=== PATIENT | male | born 1945 ===

== ENCOUNTER 2016-07-20 14:16 | Inpatient (IN) | payer MEDICARE, OTHER ==
[2016-07-20 14:32] VITALS: BMI 25.3
[2016-07-20] MEDS ORDERED: Sodium Chloride 0.9% 1,000 ML IV STA ×2 (14:48→14:49)
--- NOTE | 2016-07-20 15:01 | ED PDOC ---
Arrival/HPI - General Historian: Patient - General Chief Complaint: Trauma Time Seen by Provider: 07/20/16 14:18 - History of Present Illness Narrative History of Present Illness (Text): 07/20/16 14:51 71 yo M w h/o CVA, NIDDM2, HTN presented to ER s/p fall with head trauma. Patient states he started having dysuria, urgency and frequency yesterday and started becoming dizzy. He states he was walking today and "lost balance," falling on his face. Patient states he was carrying groceries and did not attempt to brace his fall, falling on his left forehead and nose. He states a passerby helped him up and incident recurred ~1 hour later. Patient denies actual loss of consciousness and states this has not occurred previously. Patient denies CP, SOB, RASMUSSEN, headache, confusion, palpitations immediately prior to syncopal episode. Patient denies any current headache, dizziness, confusion, vision changes, CP, SOB, abd pain, n/v/d/c, chills. (Zuleyka Howard) Past Medical History - Provider Review Nursing Documentation Reviewed: Yes - Travel History Have you recently traveled outside [place] w/in the past 3 mons?: No - Cardiac Hx Cardiac Disorders: Yes Hx Hypertension: Yes - Pulmonary Hx Respiratory Disorders: No - Neurological Hx Neurological Disorder: Yes HX Cerebrovascular Accident: Yes - HEENT Hx HEENT Disorder: No - Renal Hx Renal Disorder: No - Endocrine/Metabolic Hx Endocrine Disorders: Yes Hx Diabetes Mellitus Type 2: Yes - Hematological/Oncological Hx Blood Disorders: No - Integumentary Hx Dermatological Disorder: No - Musculoskeletal/Rheumatological Hx Musculoskeletal Disorders: No - Gastrointestinal Hx Gastrointestinal Disorders: No - Genitourinary/Gynecological Hx Genitourinary Disorders: No - Psychiatric Hx Psychophysiologic Disorder: No Hx Anxiety: No Hx Substance Use: No Family/Social History - Physician Review Nursing Documentation Reviewed: Yes Family/Social History: CAD/[place] Smoking Status: Never Smoked Hx Alcohol Use: No Hx Substance Use: No Allergies/Home Meds Allergies/Adverse Reactions: Allergies No Known Allergies Allergy (Verified 07/20/16 14:31) Home Medications: Home Meds Medication Instructions Recorded Confirmed Lisinopril [Zestril] 10 mg PO DAILY 07/20/16 07/20/16 Sitagliptin Phos/Metformin HCl 0 mg PO DAILY 07/20/16 07/20/16 [Janumet 50-1,000 mg Tablet] Review of Systems - Physician Review All systems were reviewed & negative as marked: Yes - Review of Systems Constitutional: absent: Fatigue, Fevers, Night Sweats Eyes: absent: Vision Changes, Photophobia ENT: absent: Rhinorrhea, Epistaxis, Sinus Congestion Respiratory: absent: SOB, Cough, Sputum Cardiovascular: absent: Chest Pain, Palpitations, Edema, Calf Pain, RASMUSSEN Gastrointestinal: absent: Abdominal Pain, Diarrhea, Nausea, Vomiting Genitourinary Male: Dysuria, Frequency, Other (urgency). absent: Hematuria Musculoskeletal: absent: Arthralgias, Neck Pain Skin: absent: Rash, Skin Lesions Neurological: absent: Headache, Dizziness, Focal Weakness Endocrine: absent: Diaphoresis, Polydipsia Psychiatric: absent: Anxiety, Depression, Suicidal Ideation Physical Exam Temperature: Afebrile Blood Pressure: Normal Pulse: Regular Respiratory Rate: Normal Appearance: Positive for: Well-Appearing, Non-Toxic, Comfortable Pain Distress: None Mental Status: Positive for: Alert and Oriented X 3 - Systems Exam Head: Present: Abrasion (bridge of nose and L>R forehead). No: Atraumatic Pupils: Present: PERRL. No: Sluggish Extroacular Muscles: Present: EOMI Conjunctiva: Present: Normal. No: Injected, Icteric Mouth: Present: Dry (slightly) Neck: Present: Normal Range of Motion. No: Meningeal Signs, JVD Respiratory/Chest: Present: Clear to Auscultation. No: Respiratory Distress, Accessory Muscle Use Cardiovascular: Present: Murmurs (3/6 systolic RSB), Normal S1, S2, Tachycardic. No: Irregular Rhythm Abdomen: Present: Normal Bowel Sounds. No: Tenderness, Distention, Peritoneal Signs, Rebound, Guarding Back: No: CVA Tenderness Upper Extremity: Present: Normal Inspection. No: Cyanosis, Edema Lower Extremity: Present: Normal Inspection. No: Edema, CALF TENDERNESS Neurological: Present: GCS=15, CN II-XII Intact, Speech Normal Skin: Present: Warm, Dry, Normal Color. No: Rashes Psychiatric: Present: Alert, Oriented x 3, Normal Insight, Normal Concentration Vital Signs Temp Pulse Resp BP Pulse Ox 07/20/16 16:32 83 16 119/58 L 95 07/20/16 16:11 84 16 120/60 98 07/20/16 16:10 80 18 120/57 L 95 07/20/16 14:32 101.6 F H 110 H 15 150/55 L 95 Medical Decision Making Re-evaluation Time: 16:10 Reassessment Condition: Re-examined, Unchanged - Lab Interpretations I have reviewed the lab results: Yes - RAD Interpretation Heavy Equipment Rental Manager: Radiologist - EKG Interpretation Interpreted by ED Physician: Yes Type: 12 lead EKG Comparison: No previous EKG avail. (09/11/2014 Nuclear stress test report indicates presence of RBBB at that time) ED Course and Treatment: 07/20/16 15:08 71 yo M w h/o CVA, HTN, NIDDM2 presented with pre-syncope with head trauma, and dysuria. Patient febrile in ER 101.6, tachycardic in 100s. CT head without contrast, labs, EKG, UA with culture, blood cultures. 1L NS bolus x 2. 07/20/16 16:10 Patient re-evaluated, states he feels the same, no complaints. 07/20/16 16:[address] Cruz, case discussed at length. Dr. Cruz accepts admission to telemetry, requests 1/2 NS @ 80cc/hr, low insulin SSI, diet, neuro [facility] Dr. Will. [facility] 07/20/16 16:49 Patient seen and examined with resident Came up with treatment and disposition plan with resident (Charbel Cain) - Lab Interpretations Lab Results: 07/20/16 15:00 07/20/16 15:00 Lab Results 07/20/16 15:30: Urine Color Yellow, Urine Appearance Sl cloudy, Urine pH 6.0, Ur Specific [place] >= 1.030, Urine Protein 30 H, Urine Glucose (UA) Negative, Urine Ketones Trace H, Urine Blood Large H, Urine Nitrate Negative, Urine Bilirubin Negative, Urine Urobilinogen 1.0 H, Ur Leukocyte Esterase Trace H, Urine RBC 0 - 2, Urine WBC 5 - 10, Ur Epithelial Cells 0 - 2, Urine Bacteria Many 07/20/16 15:00: WBC 16.7 H D, RBC 4.28, Hgb 13.1 L, Hct 37.7 L, MCV 88.1, MCH 30.6, MCHC 34.7, RDW 13.5, Plt Count 199, MPV 10.3, Gran % 87.9 H, Lymph % (Auto ) 4.5 L, [place] % (Auto) 7.4 H, Eos % (Auto) 0.0 L, Baso % (Auto) 0.2, Gran # 14.69 H, Lymph # 0.8 L, [place] # 1.2 H, Eos # 0.0, Baso # 0.03, PT 11.9 H, INR 1.10 H, APTT 29.5, Sodium 134, Potassium 4.3, Chloride 97 L, Carbon Dioxide 25, Anion Gap 16, BUN 23 H, Creatinine 1.0, Est GFR ( Amer) > 60, Est GFR ( Non-Af Amer) > 60, Random Glucose 149 H, Calcium 9.3, Magnesium 1.8, Total Bilirubin 1.4 H, AST 28, ALT 26, Alkaline Phosphatase 59, Troponin I < 0.01, NT- Pro-B Natriuret Pep 220, Total Protein 7.7, Albumin 4.1, Globulin 3.6, Albumin/ Globulin Ratio 1.1 - RAD Interpretation Narrative RAD Interpretations (Text): 07/20/16 16:11 CXR - no active disease. CT head - no intracranial mass, hemorrhage or evidence of acute infarct. Remote ischemic change right frontal rosas radiate/centrum semiovale. (Zuleyka Howard) Radiology Orders: 07/20/16 14:39 HEAD W/O CONTRAST [CT] Stat 07/20/16 14:40 CHEST TWO VIEWS (PA/LAT) [RAD] Stat - EKG Interpretation EKG Interpretation (Text): 07/20/16 15:05 NSR 97bpm, RBBB, normal intervals (Zuleyka Howard) - Medication Orders Current Medication Orders: Sodium Chloride (Sodium Chloride 0.45%) 1,000 mls @ 80 mls/hr IV .[id number] ESTELLA Insulin Human Lispro (Humalog Low) 0 units SC ACHS ESTELLA PRN Reason: Protocol Discontinued Medications Acetaminophen (Tylenol 325mg Tab) 650 mg PO STAT STA Stop: 07/20/16 15:38 Last Admin: 07/20/16 16:07 Dose: 650 MG Sodium Chloride (Sodium Chloride 0.9%) 1,000 mls @ 999 mls/hr IV .Q1H1M STA Stop: 07/20/16 15:48 Last Admin: 07/20/16 15:00 Dose: 999 MLS/HR eMAR Start Stop Document 07/20/16 15:00 SF (Rec: 07/20/16 16:09 [id number]) Intravenous Solution Start Date 07/20/16 Start Time 15:00 End Date 07/20/16 End time 16:00 Total Infusion Time 60 Sodium Chloride (Sodium Chloride 0.9%) 1,000 mls @ 999 mls/hr IV .Q1H1M STA Stop: 07/20/16 15:49 Last Admin: 07/20/16 15:00 Dose: 999 MLS/HR eMAR Start Stop Document 07/20/16 15:00 SF (Rec: 07/20/16 16:08 SF [facility] [id number]) Intravenous Solution Start Date 07/20/16 Start Time 15:00 End Date 07/20/16 End time 16:00 Total Infusion Time 60 Ceftriaxone Sodium (Rocephin 1 Gram Ivpb) 100 mls @ 200 mls/hr IVPB STAT STA PRN Reason: Protocol Stop: 07/20/16 16:06 Last Admin: 07/20/16 16:07 Dose: 200 MLS/HR eMAR Start Stop Document 07/20/16 16:07 SF (Rec: 07/20/16 16:07 SF [facility] [id number]) Intravenous Solution Start Date 07/20/16 Start Time 16:07 End Date 07/20/16 End time 16:37 Total Infusion Time 30 Disposition/Present on Arrival - Present on Arrival Any Indicators Present on Arrival: No History of DVT/PE: No History of Uncontrolled Diabetes: No Urinary Catheter: No History of Decub. Ulcer: No History Surgical Site Infection Following: None - Disposition Have Diagnosis and Disposition been Completed?: Yes Disposition Time: 16:23 Patient Plan: Admission - Disposition Diagnosis: Sepsis, UTI (urinary tract infection), Syncope Disposition: HOSPITALIZED Patient Problems: Current Active Problems Problem Status Diagnosed Sepsis Acute Syncope Acute UTI (urinary tract infection) Acute Condition: FAIR Discharge Instructions (ExitCare): Sepsis (ED), Syncope (ED), Urinary Tract Infection in Men (DC) Referrals: Zachariah Holly MD [Primary Care Provider] - Follow up with primary
--- NOTE | 2016-07-20 15:29 | CT ---
PROCEDURE: CT HEAD WITHOUT CONTRAST. HISTORY: syncope, head trauma COMPARISON: None available. TECHNIQUE: Axial computed tomography images were obtained through the head/brain without intravenous contrast. Radiation dose: Total exam DLP = 677.45 mGy-cm. This CT exam was performed using one or more of the following dose reduction techniques: Automated exposure control, adjustment of the mA and/or kV according to patient size, and/or use of iterative reconstruction technique. FINDINGS: HEMORRHAGE: No intracranial hemorrhage. BRAIN: No mass effect or edema. There is mild to moderate diffuse cerebral atrophy. There is remote focal white matter ischemic change in the right frontal rosas radiata extending to the centrum semiovale. . There is mild periventricular white matter lucency, consistent with age-related microvascular ischemic change. There is no evidence of acute infarct. VENTRICLES: Unremarkable. No hydrocephalus. CALVARIUM: Unremarkable. PARANASAL SINUSES: Unremarkable as visualized. No significant inflammatory changes. MASTOID AIR CELLS: Unremarkable as visualized. No inflammatory changes. OTHER FINDINGS: None. IMPRESSION: No intracranial mass, hemorrhage or evidence of acute infarct. Remote ischemic change right frontal rosas radiata/ centrum semiovale.
--- NOTE | 2016-07-20 15:30 | RAD ---
HISTORY: syncope COMPARISON: No prior. TECHNIQUE: Chest PA and lateral FINDINGS: LUNGS: No active pulmonary disease. PLEURA: No significant pleural effusion identified. No pneumothorax apparent. CARDIOVASCULAR: Normal. OSSEOUS STRUCTURES: No significant abnormalities. VISUALIZED UPPER ABDOMEN: Normal. OTHER FINDINGS: None. IMPRESSION: No active disease.
[2016-07-20] MEDS ORDERED: cefTRIAXone 1 gm 100 ML IVPB STA (15:37)
[2016-07-20 15:41] LABS: ADD MANUAL DIFF? NO
[2016-07-20 15:53] LABS: BASO # 0.03 K/mm3 (0.0-2.0); BASO % 0.2 % (0.0-3.0); GRAN # 14.69 (1.4-6.5); GRAN % 87.9 % (50.0-68.0); HEMATOCRIT 37.7 % (42.0-52.0); LYMPH # 0.8 (1.2-3.4); LYMPH % 4.5 % (22.0-35.0); MEAN CELL VOLUME 88.1 fL (80.0-105.0); MEAN CORPUSCULAR HEMOGLOBIN 30.6 pg (25.0-35.0); MEAN CORPUSCULAR HGB CONC 34.7 g/dl (31.0-37.0); MEAN PLATELET VOLUME 10.3 fl (7.0-11.0); MONO # 1.2 (0.1-0.6); MONO % 7.4 % (1.0-6.0); PLATELET COUNT 199 10^3/uL (120.0-450.0); RED CELL DISTRIBUTION WIDTH 13.5 % (11.5-14.5); WHITE BLOOD COUNT 16.7 10^3/ul (4.5-11.0)
[2016-07-20 15:55] LABS: ALB/GLOB RATIO 1.1 (1.1-1.8); ALKALINE PHOSPHATASE 59 U/L (38-133); ALT/SGPT 26 U/L (7-56); AST/SGOT 28 U/L (15-59); BILIRUBIN,TOTAL 1.4 mg/dL (0.2-1.3); BLOOD UREA NITROGEN 23 mg/dL (7-21); CALCIUM 9.3 mg/dL (8.4-10.5); CARBON DIOXIDE 25 mmol/L (21-33); CHLORIDE 97 mmol/L (98-107); GFR AFRICAN-AMERICAN > 60; GLUCOSE,RANDOM 149 mg/dL (70-110); MAGNESIUM 1.8 mg/dL (1.7-2.2); POTASSIUM 4.3 mmol/L (3.6-5.0); SODIUM 134 mmol/L (132-148); TOTAL PROTEIN 7.7 g/dL (5.8-8.3)
[2016-07-20 15:58] LABS: INR 1.1 (0.93-1.08); PARTIAL THROMBOPLASTIN TIME 29.5 Seconds (23.7-30.8)
[2016-07-20 15:58] LABS: URINE APPEARANCE SL CLOUDY (CLEAR); URINE BILIRUBIN NEGATIVE (NEGATIVE); URINE BLOOD LARGE (NEGATIVE); URINE COLOR YELLOW (YELLOW); URINE GLUCOSE (UA) NEGATIVE (NEGATIVE); URINE KETONE TRACE mg/dL (NEGATIVE); URINE LEUKOCYTE ESTERASE TRACE Leu/uL (NEGATIVE); URINE PROTEIN 30 mg/dL (<30 mg/dL)
[2016-07-20 16:09] LABS: TROPONIN I < 0.01 ng/mL
[2016-07-20 16:18] LABS: URINE BACTERIA MANY (NEG); URINE EPITHELIAL CELLS 0 - 2 /hpf (0-5); URINE RBC 0 - 2 /hpf (0-2)
[2016-07-20] MEDS ORDERED: Sodium Chloride 0.45% 1,000 ML IV SCH (16:30)
[2016-07-20] MEDS: Insulin Lispro (humaLOG) LOW Coverage SC SCH ×2 (16:35→22:03)
[2016-07-21] MEDS: Insulin Lispro (humaLOG) LOW Coverage SC SCH ×4 (07:40→21:33)
--- NOTE | 2016-07-21 10:19 | HP ---
The patient was examined on 07/20. History and physical completed on patient on 07/20. HISTORY OF PRESENT ILLNESS: This 71-year-old male was examined in bed 16 in the [facility] ER. He presented to the ER on 07/20, after having a fall while walking on the street with groceries and sustaining an abrasion to his forehead and left cheek. The patient stated he felt weak and dizzy and in the Emergency Room was noted to have a fever in excess of 101 with tachycardia and clinical dehydration. The patient was noted to have signs of a urinary tract infection and is being admitted for further evaluation of all the above and concerns of urosepsis. On further questioning, when he presented to the ER, he was noted to be tachycardic, febrile, was cultured, given 2 liters of IV fluid and at present is afebrile after the administration of antibiotic and Tylenol and has a heart rate in the 80s, in a normal sinus rhythm on the monitor. The patient's past medical history is significant for chronic hypertension, benign prostate hypertrophy, hyperlipidemia, type 2 diabetes mellitus, and a history of an old right cerebrovascular accident approximately 10 years ago at which time he had left-sided weakness, which is now resolved. REVIEW OF SYSTEMS: HEAD: The patient denies any knowledge of seizures, has a history of old stroke and at present has no headache. EYES: No change in visual acuity. EARS: No hearing loss. THROAT: No swallowing difficulty. NECK: No stiffness. CARDIOVASCULAR: Has a history of chronic hypertension. PULMONARY: No cough, no hemoptysis. GASTROINTESTINAL: No hematemesis, no melena. GENITOURINARY: Has a history of benign prostate hypertrophy for which he states he follows with Dr. Hill Corona, urology, who prescribes Flomax 0.4 mg p.o. daily for the past year. VASCULAR: No claudication. PSYCHOLOGICAL: No depression. ENDOCRINE: He has a history of type 2 diabetes mellitus. NEUROLOGICAL: Old right-sided CVA with no residual weakness. FAMILY HISTORY: Mother is . Father is alive at 98. SOCIAL HISTORY: The patient is a nondrinker, nonsmoker, non-IV drug misuser and he is a retired clerical worker. PHYSICAL EXAMINATION: GENERAL: The patient was in a normal sinus rhythm. VITAL SIGNS: Temperature 98.6, respirations 20, pulse 80, and blood pressure 113/56 with a pulse ox of 95% on room air. HEAD: He has an abrasion over his left forehead and left cheek. Eyes: No icterus. Ears clear. Throat not injected. NECK: Supple. HEART: Regular S1, S2. No pathological rubs, murmurs, or gallops. LUNGS: Clear. ABDOMEN: Soft, nontender, no palpable organomegaly. EXTREMITIES: No clubbing, no cyanosis, no edema. SKIN: Without rash. VASCULAR: Legs warm to touch. PSYCHOLOGICAL: Alert and oriented x 3. NEUROLOGIC: Grossly intact. Motor strength 5/5 in upper and lower extremities. No motor defect. LABORATORY DATA: White count 16,700, hemoglobin 13.1, hematocrit 37.7, platelets 199,000. PT/INR 1.10, PTT 29.5. Sodium 134, K 4.3, chloride 97, bicarbonate 25, BUN 23, creatinine 1.0, random blood sugar was 149, magnesium normal at 1.8, AST 28, ALT 26, alkaline phosphatase 59, bilirubin 1.4. Troponin was less than 0.01. Urinalysis showed 0-2 RBCs and many bacteria with a specific gravity greater than 1.030. system development engineer showed normal sinus rhythm. Chest x-ray showed no active disease. Head CT showed no intracranial mass, hemorrhage, or evidence of acute infarct and remote ischemic changes in the right frontal rosas. IMPRESSION: A 71-year-old male with urinary tract infection, leukocytosis, probable urosepsis, who presented with clinical fever, dehydration, which probably prompted his trip and fall and of which there was no loss of consciousness with comorbidities of type 2 diabetes mellitus, history of prostate hypertrophy and chronic hypertension. PLAN: My plans are to fully culture this patient's blood and urine. He has received 2 liters of IV fluid and will be maintained on 0.45 saline at 80 mL per hour. He will be ordered a heart healthy diabetic diet and be placed on regular low dose insulin protocol a.c. meals and at bedtime. He will receive Rocephin 1 gram IV q. 24 pending his urinary culture results. He will have his Zestril 10 mg p.o. daily ordered. When his blood pressure stabilizes, will be put back on his Flomax 0.4 mg p.o. daily. He has a consultation pending with Dr. Will from neurology. I have had a lengthy bedside discussion with this patient regarding the need for him upon discharge to follow up with his PMD, Dr. Holly as well as Dr. Hill Corona from urology regarding his presenting signs of urinary tract infection and the patient is aware that it is his responsibility to do so and states he will. Hopefully he will be compliant with these recommendations upon discharge. Greater than 60 minutes was spent in the care, coordination of care, discussion of care, review of care with the patient and co-consultants today. Yari Cruz MD cc: [phone] TT: 07/21/2016 10:18:17 luis SPENCE
--- NOTE | 2016-07-21 11:11 | CARD ---
APPROVED REPORT EKG Measurement Heart [id number] <Conclusion> Normal sinus rhythm Right bundle branch block Minimal voltage criteria for LVH, may be normal variant
[2016-07-21] MEDS: cefTRIAXone 1 gm 100 ML IVPB SCH (11:26)
[2016-07-21] MEDS: Sodium Chloride 0.45% 1,000 ML IV SCH (11:30)
--- NOTE | 2016-07-21 13:14 | CON ---
DATE: 07/21/2016 CHIEF COMPLAINT: Status post fall. HISTORY OF PRESENTING ILLNESS: This is a 71-year-old man with past medical history of chronic hypert ension, type 2 diabetes mellitus, history of old right basal ganglia infarct without any residual wea kntierney, which was 10 years ago, who presented because he was walking on the street with groceries and felt off balance and lightheaded and generalized weakness and fell. He denies any loss of consciousn ess or any palpitations. He had a fever of 101 and tachycardic and was clinically dehydrated. He hernandez d elevated BUN. He was given 2 liters of IV fluids in the ER. Currently, he is stable. He is no lo nger febrile. He has an elevated white count, has positive urinary tract infection. His blood press ures are much more stable. He had systolically and diastolically mild low blood pressure when he cam e in. Currently, he has no focal weakness, just some subtle weakness on the left side in terms of re duced finger tap on the left compared to the right from prior CVA. PAST MEDICAL HISTORY: History of right MCA infarct with minimal residual left-sided weakness which h as resolved, type 2 diabetes mellitus, chronic hypertension. REVIEW OF SYSTEMS: A 14-point is negative except for in the HPI. FAMILY HISTORY: Mother . Father is alive at . SOCIAL HISTORY: No illicit drug use, smoking or ETOH abuse. ALLERGIES: No known drug allergies. MEDICATIONS: Reviewed via nurse's reconciliation sheet. PHYSICAL EXAMINATION: VITAL SIGNS: Temperature 98.3, pulse rate 63, blood pressure 115/64, respiratory rate of 15, oxygen saturation 98% via room air. GENERAL: The patient is sitting up in the chair, in no acute distress. HEENT: Atraumatic, normocephalic. PERRLA. Extraocular muscles intact. NECK: Supple, no JVD, no adenopathy noted. LUNGS: Clear to auscultation. No adventitious sounds. HEART: S1, S2, normal rate and rhythm. No murmurs, rubs, or gallops. ABDOMEN: Soft, nontender, nondistended. Bowel sounds are present. EXTREMITIES: No clubbing, no cyanosis. Peripheral pulses 2+ felt bilaterally. NEUROLOGIC: The patient is alert, oriented to person, place, month and year. Speech is fluent, with out any errors. Cranial nerves II-XII are intact. MOTOR: Moves all extremities equally. Mild left finger tap slowing compared to the right from prior CVA. Otherwise, DTRs are 2+ throughout. COORDINATION: [id number] intact. SENSORY: Light touch, pinprick, proprioception, vibration intact. GAIT: Deferred for now. LABORATORIES: Sodium 134, potassium 4.2, chloride 97, carbon dioxide of 25, BUN of 23, creatinine of 1, random glucose of 149. ASSESSMENT AND PLAN: This is a 71-year-old man with history of a right basal ganglia infarct with ve ry limited left-sided weakness with history of type 2 diabetes mellitus and hypertension, who had a f all and near syncope and felt generalized weak and dizzy, and came to the hospital for further evalua tion, found to have mild tachycardia and was clinically dehydrated and had low systolic blood pressur es. In addition, had small urinary tract infection. At this time, his symptoms could be secondary o r transient cerebral hypoperfusion from dehydration. At this time, recommend: 1. Monitor his electrolytes and correct accordingly. 2. He is on ceftriaxone and was given 1 gram, was given 1 dose for his underlying small urinary trac t infection. 3. Keep his systolic blood pressure between 120-130 mmHg. 4. Advised adequate hydration throughout the day. 5. Currently, from a neuro standpoint, he is clinically stable and cleared for discharge when feels well. Thank you for this consult. Fidel Will MD cc: [phone] TT: 07/21/2016 13:14:13 Confirmation # [id number] Dictation # [id number]
--- NOTE | 2016-07-21 20:22 | PN ---
DATE: 07/21/2016 This 71-year-old male was examined at his bedside in the presence of his and his daughter. His case was reviewed in detail with his nurse Lula Crabtree and the patient today remains on IV fluids, IV antibiotics in the setting of urosepsis status post dehydration with tachycardia, fever and leukocytosis. At present, the patient is much more alert. He now reveals that he has additional medication that needs to be ordered including Aggrenox 25-200 one p.o. daily as well as Lipitor 20 mg p.o. at bedtime. The patient is tolerating IV fluids, IV antibiotics, has had a defervescence of his fever and his cardiac/vascular sonographer is showing normal sinus rhythm. He denied any fever, chills , or dysuria at present. He is tolerating IV antibiotic. PHYSICAL EXAMINATION VITAL SIGNS: Temperature 98.3, respirations 15, pulse 63 and blood pressure 115 /64, pulse ox was 95% on room air. HEAD: Normocephalic, atraumatic. EYES: No icterus. EARS: Clear. THROAT: Noninjected. NECK: Supple. HEART: S1, S2, without pathological rubs, murmurs or gallops. LUNGS: Clear to auscultation. ABDOMEN: Soft, nontender, no palpable organomegaly, no rebound, no guarding, no tenderness. EXTREMITIES: No clubbing, no cyanosis, no edema. SKIN: Without rash. NEUROLOGIC: Intact. PSYCHOLOGICAL: Alert. VASCULAR: Warm to touch. LABORATORY DATA: White count was 16,700, hemoglobin 13.1, hematocrit 37.7, platelets 199,000. Sodium 134, K 4.3, chloride 97, bicarbonate 25, BUN 23, creatinine 1.0, blood sugar ranged between 119 and 128. All liver function testing was normal including bilirubin 1.4, AST 28, ALT 26, alkaline phosphatase 59. Blood and urine cultures are pending at present. IMPRESSION: A 71-year-old male admitted with a near syncopal attack in the clinical setting of fever, dehydration and tachycardia secondary to urosepsis as evidenced by bacteriuria and fever and leukocytosis with comorbidities of old stroke, chronic hypertension, benign prostate hypertrophy, type 2 diabetes mellitus, hyperlipidemia and chronic hypertension. PLAN: At present is to continue 0.45 saline at 50 mL per hour. He will start Aggrenox 25-200 one p.o. daily as per his home medication labeling. He is ordered to receive Flomax 0.4 mg p.o. at bedtime, regular low dose insulin coverage before meals and at bedtime, Rocephin 1 gram IV q. 24 and Zestril 10 mg p.o. daily. I will order his Lipitor 20 mg p.o. at bedtime. He continues on a heart healthy diabetic diet. He remains on fall precautions. He has physical therapy ordered for ambulation safety. He remains on the cardiac unit , is awaiting a neurological evaluation. He will have a repeat basic metabolic panel and CBC in the morning and I will check the results of his blood and urine cultures as they become available. All of this was discussed in detail with the patient, his , his daughter and his nurse and greater than 60 minutes are spent in the care, coordination of care, and review of care for this patient today with his nursing staff, co-consultants and family. Yari Cruz MD cc: [phone] TT: 07/21/2016 20:21:08 Confirmation # [id number] Dictation # [id number] MTDD
[2016-07-22 07:04] LABS: HEMATOCRIT 38.5 % (42.0-52.0); MEAN CELL VOLUME 87.3 fL (80.0-105.0); MEAN CORPUSCULAR HEMOGLOBIN 29.9 pg (25.0-35.0); MEAN CORPUSCULAR HGB CONC 34.3 g/dl (31.0-37.0); MEAN PLATELET VOLUME 10.5 fl (7.0-11.0); RED CELL DISTRIBUTION WIDTH 13.3 % (11.5-14.5); WHITE BLOOD COUNT 7.4 10^3/ul (4.5-11.0)
[2016-07-22 07:23] LABS: BLOOD UREA NITROGEN 16 mg/dL (7-21); CALCIUM 9.2 mg/dL (8.4-10.5); CARBON DIOXIDE 25 mmol/L (21-33); CHLORIDE 104 mmol/L (98-107); GFR AFRICAN-AMERICAN > 60; GLUCOSE,RANDOM 126 mg/dL (70-110); POTASSIUM 3.7 mmol/L (3.6-5.0); SODIUM 138 mmol/L (132-148)
[2016-07-22] MEDS: Insulin Lispro (humaLOG) LOW Coverage SC SCH ×4 (07:48→22:02)
[2016-07-22] MEDS: cefTRIAXone 1 gm 100 ML IVPB SCH (09:57)
[2016-07-22] MEDS: Aspirin-Dipyridamole 200-25 mg ER Cap PO SCH (09:59)
[2016-07-22] MEDS: Sodium Chloride 0.45% 1,000 ML IV SCH (17:19)
[2016-07-23] MEDS: Insulin Lispro (humaLOG) LOW Coverage SC SCH ×4 (08:22→21:53)
[2016-07-23] MEDS: Aspirin-Dipyridamole 200-25 mg ER Cap PO SCH (10:08)
[2016-07-23] MEDS: cefTRIAXone 1 gm 100 ML IVPB SCH (10:08)
[2016-07-23] MEDS: Sodium Chloride 0.45% 1,000 ML IV SCH ×2 (14:55→21:48)
--- NOTE | 2016-07-23 20:07 | PN ---
DATE: 07/22/2016 SUMMARY: This 71-year-old male was examined at his bedside on the cardiac unit where he remains in a normal sinus rhythm on the monitor. He is tolerating IV fluids and IV antibiotics without incident. He denies any further fever, chills or dizziness and was ambulating with the assistance of staff and his family. He is able to ambulate independently. PHYSICAL EXAMINATION: He was noted to have: VITAL SIGNS: Temperature of 98.7, respirations 18, pulse 61, and blood pressure 116/62 with a pulse ox of 95% on room air. HEAD: Normocephalic, atraumatic. EYES: Showed no icterus. EARS: Clear. THROAT: Noninjected. NECK: Supple. HEART: Regular S1, S2. No pathological rubs, murmurs, or gallops. LUNGS: Clear to auscultation. ABDOMEN: Soft, nontender, no palpable organomegaly, no rebound, no guarding, no tenderness, no flank. No CVA tenderness. EXTREMITIES: No clubbing, no cyanosis, no edema. SKIN: Without rash. NEUROLOGIC: Intact. PSYCHOLOGICAL: Alert. VASCULAR: Legs warm to touch. LABORATORY DATA: Repeat labs show white count is now 7,400; previously 16,700. Hemoglobin 13.2, hematocrit 38.5, platelets 204,000. Sodium 138, K 3.7, chloride 104, bicarb 25, BUN 16, creatinine 0.8, random blood sugar was 128, calcium was normal at 9.2. His blood culture showed no growth and urine culture is showing E. coli. IMPRESSION: A 71-year-old male admitted with Escherichia coli urinary tract infection, dehydration, chronic hypertension, history of old cerebrovascular accident, history of benign prostate hypertrophy, type 2 diabetes mellitus, hyperlipidemia and chronic hypertension and degenerative arthritis. PLAN: At present is to continue 0.45 saline at 50 mL per hour. He continues on Aggrenox 25-200 one tablet daily, Flomax 0.4 mg p.o. at bedtime, regular low dose insulin protocol a.c. meals and at bedtime, Lipitor 20 mg p.o. at dinnertime, Rocephin 1 gram IV daily and Zestril 10 mg p.o. daily. He continues on a heart healthy diabetic diet. He remains on fall protocol. He is ordered for physical therapy for ambulation safety and staircase safety and the patient will continue on IV antibiotics, given the severity of his symptoms upon admission. All of this was reviewed with the patient, his nurse and family members in detail. He continues on the cardiac unit given his admission presentation. Yari Cruz MD cc: [id number] TT: 07/23/2016 20:07:06 Confirmation # [id number] Dictation # [id number] mn MTDD
--- NOTE | 2016-07-23 20:15 | PN ---
DATE: 07/23/2016 This 71-year-old male was examined at his bedside in the presence of his . He remains weak and deconditioned having been admitted with tachycardia, fever, dehydration in the setting of urosepsis. To date, his urinary cultures are growing Escherichia coli. Blood cultures are negative to date and the Escherichia coli urinary tract infection is indeed sensitive to IV Rocephin. The patient states he is walking without difficulty around the cardiac cartwright. He denies any fever, chills and states his appetite is improving and he is able to drink fluids without incident. 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 PHYSICAL EXAMINATION VITAL SIGNS: Temperature 97.8, respirations 20, pulse 68 and blood pressure 118 /55, pulse ox is 96% on room air. HEAD: Normocephalic, atraumatic. EYES: No icterus. EARS: Clear. THROAT: Noninjected. NECK: Supple. HEART: Regular S1, S2. No pathological rubs, murmurs, or gallops. LUNGS: Clear. ABDOMEN: Soft. No rebound, no guarding, no tenderness, no CVA tenderness. EXTREMITIES: No clubbing, no cyanosis, no edema. SKIN: Without rash. NEUROLOGIC: Intact. PSYCHOLOGICAL: Alert. VASCULAR: Legs warm to touch. LABORATORY DATA: Sodium 138, K 3.7, chloride 104, bicarb 25, BUN 16, creatinine 0.8, random blood sugar was 137. White count has improved with a white count now of 7,400; previously 16,700. Hemoglobin 13.2, hematocrit 38.5, platelets 204,000. Blood cultures no growth after 3 days. Urinary culture E. coli sensitive to Rocephin. IMPRESSION: A 71-year-old male with Escherichia coli urinary tract infection, urosepsis, status post dehydration, tachycardia, leukocytosis on presentation. Also, with history of old stroke, benign prostate hypertrophy, type 2 diabetes mellitus, hyperlipidemia and chronic hypertension. My plans are to continue gentle IV fluids at 0.45 saline at 50 mL per hour. He continues on Aggrenox 25- 200 one tablet daily, Flomax 0.4 mg p.o. at bedtime, regular low dose insulin protocol a.c. meals and at bedtime, Lipitor 20 mg p.o. at dinner, Rocephin 1 gram IV daily and Zestril 2.5 mg p.o. daily. He continues on a heart healthy diabetic diet. He remains on fall protocol. He has an order for physical therapy for ambulation and staircase safety, and after further discussion with the family, they now agree to a urology consultation with Dr. Kaye prior to discharge, although they will be following up with Dr. Hill Corona his urologist upon discharge. He will continue on IV antibiotics pending consultation with Dr. Kaye, and once cleared by urology, will be switched to oral antibiotics to complete his antibiotic course as an outpatient. All of this was discussed in detail with nursing, the patient, family and the patient has been cleared by Dr. Fidel Will from neurology because of his syncopal episode upon admission in the setting of dehydration, fever and tachycardia, which is now resolved and the patient will be monitored closely on the cardiac unit until resolution of symptomatology. Overall prognosis remains stable at present. Yari Cruz MD cc: [id number] TT: 07/23/2016 20:14:37 Confirmation # [id number] Dictation # [id number] adolfo SPENCE
[2016-07-24] MEDS: Insulin Lispro (humaLOG) LOW Coverage SC SCH ×4 (08:42→21:54)
[2016-07-24] MEDS: cefTRIAXone 1 gm 100 ML IVPB SCH (09:09)
[2016-07-24] MEDS: Aspirin-Dipyridamole 200-25 mg ER Cap PO SCH (09:10)
--- NOTE | 2016-07-24 15:09 | CON ---
DATE: 07/24/2016 CHIEF COMPLAINT: Fall at home. HISTORY OF PRESENT ILLNESS: This is a 71-year-old male who was seen in his room at [facility] A few days ago, the patient presented to the Emergency Room after having a fall while walking on the street. The patient sustained an abrasion to his forehead and left cheek. The patient repor ts he did not lose consciousness, but did feel weak and dizzy prior to the fall. The patient was driss luated and found to have a fever in excess of 101 with tachycardia and dehydration. The patient has a history of BPH. He is followed by Dr. Hill Larson in [place]. He has been on Flomax. In the Em ergency Department, the patient was also complaining of dysuria, urinary frequency and urgency. He h as been in the hospital for a few days after being found to have a urinary infection. He has been on IV antibiotics. His blood cultures have been negative. He reports he still has some mild frequency and urgency; however, the dysuria has improved. He denies any gross hematuria. Denies any flank pa in or history of kidney stones. He reports he has been followed with prostate cancer screening and a recent PSA by Dr. Larson which he reports was normal. A consultation was requested regarding the santos fall. PAST MEDICAL HISTORY: Hypertension, BPH, hyperlipidemia, diabetes, CVA. MEDICATIONS: Currently include Aggrenox, Flomax, insulin, Lipitor, Rocephin, Tylenol, and Zestril. ALLERGIES: No known drug allergies. FAMILY HISTORY: Noncontributory. SOCIAL HISTORY: Denies any current smoking or ETOH use. REVIEW OF SYSTEMS: A 12-point review of systems was obtained. Positive for some lethargy and still feels some weakness, positive for urinary urgency and frequency. Positive for some difficulty ambula ting. Other systems are negative. PHYSICAL EXAMINATION: GENERAL: The patient is awake, alert, answering questions. He is in no acute distress. He is afebr ile. VITAL SIGNS: Temp of 98.8, pulse 67, BP 122/68, respirations 16. NECK: Supple. There is no adenopathy. Face shows some slight drooping of the left eyelid. LUNGS: Respirations normal inspiratory effort. CARDIAC: Positive S1, S2. There is no peripheral edema. ABDOMEN: Soft, nontender, nondistended. There is no hepatosplenomegaly. There is no costovertebral angle tenderness. Bladder is not palpably distended. GENITOURINARY: Phallus is normal. Scrotum is normal. Testes are bilaterally descended, nontender, no masses. Epididymides are normal. EXTREMITIES: There is no cyanosis or edema noted. LABORATORY DATA: WBC 16.7, which came down to 7.4 on 07/22. GFR greater than 6000 from 07/22. Urina lysis showed 0-2 RBCs. 5-10 WBCs, negative nitrites, negative glucose, positive for protein. Specifi c gravity was greater than 1.03. Urine culture grew E. coli from 07/22, sensitive to Macrobid, quinol ones and Bactrim. It was ESBL negative. On radiology exam, no pertinent urologic exams were done. IMPRESSION AND PLAN: This is a 71-year-old male with a history of benign prostatic hypertrophy, old cerebrovascular accident. He was found to have a urinary tract infection. Urine culture was positiv e for non-extended spectrum beta lactamase Escherichia coli sensitive to most antibiotics. The patie nt has already received a few days of IV Rocephin. Urologically, at this point, patient appears to b e voiding adequately. He still has some residual symptoms of frequency and urgency which may be rela acosta to the urinary infection, possibly related to some bladder outlet obstruction or possible overact kimberly bladder from prior cerebrovascular accident. The patient appears to be emptying adequately at th is point. His bladder is not clinically distended. He reports voiding with a good stream. Plan for now would be to have the patient continue his daily Flomax. From a urologic standpoint, he could be discharged on 1 week of oral antibiotic. Reportedly, he is being switched to Bactrim to which the i nfection is sensitive, and this should cover the infection. The patient should follow up with his ur ologist, Dr. Larson, after he completes the week of oral antibiotics to recheck the urine. I discussed this with the patient who agrees and I reported to him that if he desires, he can follow up in of [facility] alternatively or as well. Once the patient has been adequately evaluated for his other medical conditions, his weakness in the fall and dehydration, he can be discharged from a urologic standpoint on the oral antibiotics. Thank you for allowing me to participate in the care of this patient. We will follow him with you. Richy Kaye MD cc: [id number] TT: 07/24/2016 15:09:11 Confirmation # [id number] Dictation # [id number] dn
[2016-07-24] MEDS: Sodium Chloride 0.45% 1,000 ML IV SCH (21:56)
--- NOTE | 2016-07-24 22:37 | PN ---
DATE: 07/24/2016 This 71-year-old male was examined at his bedside. Case was reviewed with his nurse and the patient in detail. The patient reports no complaints of fever, chills, chest pain, or shortness of breath. He is tolerating IV fluids and has had his antihypertensives adjusted because of well-controlled hype rtension after being admitted with hypotension in the setting of admission fever, chills, and tachyca rdia. The patient remains in a normal sinus rhythm on the campaign developer and is tolerating IV antib iotics and IV fluids. He is awaiting a urological consultation by Dr. Richy Kaye. PHYSICAL EXAMINATION: Monitor shows normal sinus rhythm. VITAL SIGNS: Temperature is 98.3, respirations 20, pulse 61, and blood pressure 112/57 with a pulse ox of 96% on room air. HEAD: Normocephalic, atraumatic. EYES: Show no icterus. EARS: Clear. THROAT: Noninjected. NECK: Supple. HEART: Regular S1, S2. No pathological rubs, murmurs, or gallops. LUNGS: Clear to auscultation. ABDOMEN: Soft, nontender. No palpable organomegaly. No rebound. No guarding. No tenderness. EXTREMITIES: No clubbing. No cyanosis. No edema. SKIN: Without rash. NEUROLOGIC: Intact. PSYCHOLOGICAL: Alert. VASCULAR: Legs warm to touch. LABORATORY DATA: White count 7,400, hemoglobin 13.2, hematocrit 38.5, platelets 204,000. Blood suga r 128. Blood culture: No growth to date. Urine culture shows E coli sensitive to Bactrim. IMPRESSION: A 71-year-old male, status post urosepsis, presenting to the [facility] ER w ith fever, chills, tachycardia, and a near syncopal event related to the above with comorbidities of old cerebrovascular accident, benign prostate hypertrophy, type 2 diabetes mellitus, hyperlipidemia, and chronic hypertension, now with resolved hypotension, and no further fever or tachycardia. The claudia jack remains in a normal sinus rhythm on the monitor. PLAN: At present is to continue his dose-reduced Zestril at 2.5 mg p.o. daily, IV Rocephin 1 gram IV q. 24, Lipitor 20 mg p.o. at dinnertime, regular low-dose insulin coverage a.c. meals and at bedtime . Flomax 0.4 mg p.o. at bedtime, Aggrenox 25-200 one tablet daily and 0.45 saline at 50 mL per hour. He continues on a heart healthy diabetic diet. He remains on fall precautions. He is receiving ph ysical therapy for ambulation and staircase safety. He is awaiting a consultation with Dr. Richy Kaye from urology and will continue on IV antibiotics as outlined above. The plan will be to switch to o ral antibiotics, duration to be discussed with urology if Dr. Kaye agrees, and the patient will be re damari for discharge once medically stabilized. All of this has been discussed in detail with the lee saini, his nurse, and case management assistant in great detail, and the patient remains on the cardiac cartwright awaiting further evaluation of all of the above. Yari Cruz MD cc: [id number] TT: 07/24/2016 22:36:31 Confirmation # [id number] Dictation # [id number] tn
[2016-07-25] MEDS: Insulin Lispro (humaLOG) LOW Coverage SC SCH ×2 (07:52→12:26)
[2016-07-25] MEDS: cefTRIAXone 1 gm 100 ML IVPB SCH (10:36)
[2016-07-25] MEDS: Aspirin-Dipyridamole 200-25 mg ER Cap PO SCH (10:41)
[2016-07-25 11:44] VITALS: BP 112/71; PULSE 61; RESP 16; TEMP 98.2
--- NOTE | 2016-07-25 12:29 | DS ---
FINAL DIAGNOSES: Urinary tract infection, syncope related to dehydration and tachycardia, now resolved; chronic hypertension, history of old stroke, history of benign prostate hypertrophy, type 2 diabetes mellitus, hyperlipidemia. DISPOSITION: Home. FOLLOWUP: With Dr. Hill Corona, urology, within the next week. Also with his PMD, Dr. Holly in [place], [place], within the next week. CONSULTANTS: Dr. Fidel Will from neurology, Dr. Richy Kaye from urology. DISCHARGE DIET: 2 gram sodium, diabetic. DISCHARGE MEDICATIONS: Zestril 2.5 mg p.o. daily, Lipitor 20 mg p.o. daily, Aggrenox 25-200 mg p.o. daily, Flomax 0.4 mg p.o. HS, Janumet 1 tablet daily and Bactrim double strength 1 p.o. b.i.d. #14, no refills. SUMMARY: This 71-year-old male was admitted through the [facility] ER after a syncopal episode secondary to fever, tachycardia and dehydration in the setting of urinary tract infection. The patient was admitted, seen in consultation by Dr. Fidel Will from neurology who felt his syncopal episode was all secondary to his constitutional symptomatology. He was fully cultured, started on IV fluids, IV antibiotics and blood cultures were negative and urine culture showed E. coli sensitive to oral antibiotics including his IV Rocephin with which he was treated. On the cardiac cartwright, he was seen in consultation by Dr. Richy Kaye from urology who concurred with the current therapy and felt the patient did not warrant any additional testing since he is actively followed by Dr. Hill Corona, his urologist, as an outpatient for benign prostate hypertrophy. He felt the patient should continue an additional 1 week of oral Bactrim and have followup urological evaluation by Dr. Corona at that time. At the time of his discharge, the patient was ambulating independently. His vital signs were temperature 98.2, respirations 16, pulse 61, and blood pressure 112/ 71 with a pulse ox of 97% on room air. His white count was 7400, hemoglobin 13.2, hematocrit 38.5, platelets 204,000. His electrolytes showed sodium 138, K 3.7, chloride 104, bicarb 25, BUN 16, creatinine 0.8, and random blood sugar of 147. The patient is discharged to home. He will be supervised by his family. He will follow up with his PMD and urologist within the next week and has been advised for any change in signs and symptoms to present directly to the [facility] ER. Yari Cruz MD cc: [id number] TT: 07/25/2016 12:29:31 tn MTDD
[2016-07-25 14:44] VITALS: O2SAT 96
== END 2016-07-25 15:14 | disposition home or self-care (01) | DRG 872 ==
LOC: ED 14:16 → ERH 16:21 → 2RNO 18:07
PROVIDERS: ADMIT Internal Medicine; ATTEND Internal Medicine
DX: A41.9 Sepsis, unspecified organism (principal); I95.9 Hypotension, unspecified; N39.0 Urinary tract infection, site not specified; E11.9 Type 2 diabetes mellitus without complications; I45.10 Unspecified right bundle-branch block; B96.20 Unspecified Escherichia coli [E. coli] as the cause of diseases classified elsewhere; I10 Essential (primary) hypertension; N32.0 Bladder-neck obstruction; E86.0 Dehydration; W01.0XXA Fall on same level from slipping, tripping and stumbling without subsequent striking against object, initial encounter; E78.5 Hyperlipidemia, unspecified; N40.0 Benign prostatic hyperplasia without lower urinary tract symptoms; S00.01XA Abrasion of scalp, initial encounter; S00.81XA Abrasion of other part of head, initial encounter; Y92.480 Sidewalk as the place of occurrence of the external cause; Z79.899 Other long term (current) drug therapy; Z86.73 Personal history of transient ischemic attack (TIA), and cerebral infarction without residual deficits; R00.0 Tachycardia, unspecified; R40.2412 Glasgow coma scale score 13-15, at arrival to emergency department; R55 Syncope and collapse; N32.81 Overactive bladder; M19.90 Unspecified osteoarthritis, unspecified site; R53.81 Other malaise

== ENCOUNTER 2018-05-30 16:05 | Outpatient (CLI) | payer MEDICARE, OTHER | END 2018-05-30 16:06 | disposition home or self-care (01) | LOC: RAD 16:05 | DX: R91.8 Other nonspecific abnormal finding of lung field (principal) ==